=== PATIENT | female | born 1985 ===

== ENCOUNTER 2020-06-29 07:35 | Emergency (ER) | payer SELFPAY ==
[2020-06-29 08:10] VITALS: BP 182/120
--- NOTE | 2020-06-29 08:20 | Emergency Department Report ---
ED General Adult HPI - General Chief complaint: Dental/Oral Stated complaint: FACIAL SWELLING Time Seen by Provider: 06/29/20 08:14 Source: patient Mode of arrival: Ambulatory Limitations: No Limitations - History of Present Illness Initial comments: 34-year-old female patient presents to the emergency department with complaints of ongoing dental pain with lower lip swelling starting 2 days ago. No preceding fall, trauma, injury. Patient is not currently under the care of a dentist. Patient is not currently on antibiotics. Denies fever, chills, h oarseness, sore throat, dysphagia, shortness of breath, neck stiffness, cough, wheezing. Denies all other complaints at this time. - Related Data Previous Rx's Medication Instructions Recorded Last Taken Type Naproxen 500 mg PO BID #20 tablet 06/29/20 Unknown Rx Penicillin Vk [Veetids TAB] 500 mg PO QID 7 Days tablet 06/29/20 Unknown Rx Allergies Allergy/AdvReac Type Severity Reaction Status Date / Time No Known Allergies Allergy Unverified 06/29/20 08:08 ED Review of Systems ROS: Stated complaint: FACIAL SWELLING Other details as noted in HPI Other: GENERAL: Negative for fever. ENT: Positive for dental pain/lip swelling. CARDIOVASCULAR: Negative for chest pain. PULMONARY: Negative for shortness of breath. GASTROINTESTINAL: Negative for abdominal pain. MUSCULOSKELETAL: Negative for back pain. NEUROLOGICAL: Negative for headache. INTEGUMENTARY: Negative for rash. ED Past Medical Hx - Past Medical History Hx Asthma: Yes - Surgical History Additional Surgical History: - Medications Home Medications: Home Medications Medication Instructions Recorded Confirmed Last Taken Type Naproxen 500 mg PO BID #20 tablet 06/29/20 Unknown Rx Penicillin Vk [Veetids TAB] 500 mg PO QID 7 Days tablet 06/29/20 Unknown Rx ED Physical Exam - General Limitations: No Limitations - Other Other exam information: General: Awake, appropriately interactive, no acute distress. Dental: Oral mucosa is moist. Upper and lower gingiva appear inflamed. No fluctuance or evidence of periapical abscess. Sublingual, submental, and submandibular spaces all soft, without edema. No evidence for maxillary or buccal space abscess. No trismus. Patient is speaking in full sentences and handling secretions without difficulty. Neck: Supple. Full range of motion intact. Cardiovascular: Normal peripheral perfusion. Pulmonary: No respiratory distress. Patient is speaking normally without use of accessory muscles. Skin: No apparent rashes or lesions. Neurological: No facial asymmetry. Speech is clear. Follows commands. Patient is alert and oriented. Musculoskeletal: Moves all four extremities spontaneously with normal range of motion. Psych: Cooperative. Appropriate mood and affect. ED Course Vital Signs 06/29/20 08:08 Temperature 98.7 F Pulse Rate 86 Respiratory 18 Rate Blood Pressure 182/120 O2 Sat by Pulse 100 Oximetry ED Medical Decision Making - Medical Decision Making Differential diagnosis including but not limited to: dental caries, dental abscess, Az's angina, necrotizing gingivitis Patient presents emergency department with complaints of dental pain and lower lip swelling. She is afebrile. No tachycardia, no hypoxia, no respiratory distress. Speaking and handling her secretions without difficulty. History and exam findings suggestive of gingivitis with dental caries. No clinical indication for further diagnostic work-up on an emergent basis at this time. Patient will be discharged home with appropriate analgesics/antibiotics and referred to dentist for close outpatient follow-up. Patient expressed unders tanding and is agreeable to plan of care. Strict return precautions provided. Of note, patient's blood pressure was noted to be elevated in the emergency department, likely attributable to pain. Patient reports no prior history of hypertension. Specifically denies chest pain, shortness of breath, palpitations, syncope, headache, vision changes. Neurological exam is nonfocal and remainder of vital signs are stable. No clinical indication for further diagnostic work- up and/or initiation of antihypertensive therapy at this time per ACEP asymptomatic hypertension guidelines. Patient was encouraged to follow-up with primary care provider for blood pressure recheck. Lifestyle modifications recommended. Repeat exam is unremarkable and benign. History, exam, diagnostic testing, and current condition do not suggest worrisome pathology to warrant further testing, continued ED treatment, admission, or surgical evaluation at this point. Given the low probability of a significant medical illness, it would be more likely to result in harm than benefit to perform further testing at this stage. Discussed findings, presumptive diagnosis, need for follow-up and specific signs/symptoms that should prompt immediate return to the emergency department. Instructions were explained in detail to the patient in addition to giving written discharge information. Patient expressed understanding and was given the opportunity to ask questions, all of which were satisfactorily answered prior to discharge home. Critical care attestation.: If time is entered above; I have spent that time in minutes in the direct care of this critically ill patient, excluding procedure time. ED Disposition Clinical Impression: Dental caries, Elevated blood pressure reading Disposition: TO HOME OR SELFCARE Is pt being admited?: No Does the pt Need Aspirin: No Condition: Stable Instructions: DASH Eating Plan, Diet and Dental Disease Additional Instructions: Take Tylenol every 4 hours as needed for pain. Take Naprosyn twice daily with food as needed for pain. Do not take Ibuprofen while taking this medication. Take Penicillin with food as directed. Follow-up with your primary care provider next week for blood pressure recheck. Maintain a healthy diet. Exercise daily. You must follow-up with a dentist for definitive management. See referral information below. Call Wednesday to schedule an appointment. Return to the emergency department immediately for new or worsening symptoms. Specifically, return to the emergency department immediately for fever, increased swelling, difficulty swallowing, difficulty talking, difficulty breathing, or any other concerns. Prescriptions: Naproxen 500 mg PO BID #20 tablet Penicillin Vk [Veetids TAB] 500 mg PO QID 7 Days tablet Referrals: [facility] [Outside] - 3-5 Days [facility] [Outside] - 3-5 Days [facility] [Outside] - 3-5 Days [facility] [Outside] - 3-5 Days [facility] [Outside] - 3-5 Days Forms: Work/School Release Form(ED) Time of Disposition: 08:20
== END 2020-06-29 09:12 | disposition home or self-care (01) ==
LOC: ED 07:35
DX: K02.9 Dental caries, unspecified (principal); R03.0 Elevated blood-pressure reading, without diagnosis of hypertension; J45.909 Unspecified asthma, uncomplicated; Z79.899 Other long term (current) drug therapy; Z98.890 Other specified postprocedural states
CPT/HCPCS: 99281

== ENCOUNTER 2020-08-20 18:10 | Emergency (ER) | payer SELFPAY | END 2020-08-20 19:00 | disposition left against medical advice (07) | LOC: ED 18:10 | DX: R06.02 Shortness of breath (principal); R06.00 Dyspnea, unspecified; Z53.21 Procedure and treatment not carried out due to patient leaving prior to being seen by health care provider ==

== ENCOUNTER 2020-08-21 09:02 | Emergency (ER) | payer SELFPAY ==
[2020-08-21 10:44] LABS: Amorphous Crystals,Urine Few; Bacteria,Urine 1+ /HPF (Negative); Bilirubin,Urine NEG (Negative); Blood,Urine NEG (Negative); Color,Urine Yellow (Yellow); Mucus,Urine 1+ /HPF; Urobilinogen,Urine < 2.0 mg/dL (<2.0)
[2020-08-21 10:47] LABS: HCG Qualitative,Urine Negative (Negative)
--- NOTE | 2020-08-21 12:14 | Emergency Department Report ---
ED General Adult HPI - General Chief complaint: Abdominal Pain Stated complaint: SINUS/RESPIRATORY PROBLEM Time Seen by Provider: 08/21/20 11:25 Source: patient Mode of arrival: Ambulatory Limitations: No Limitations - History of Present Illness Initial comments: 34-year-old female patient with history of multiple C-sections presents to the emergency department with complaints of right lower quadrant abdominal pain with associated nausea and decreased appetite for 3 days. No known sick contacts. No current steroid or antibiotic use. No recent travel. Patient is concerned about possible STD exposure. Denies fever, chills, vomiting, diarrhea, vaginal discharge, vaginal bleeding. Denies all other complaints at this time. - Related Data Previous Rx's Medication Instructions Recorded Last Taken Type Naproxen 500 mg PO BID #20 tablet 06/29/20 Unknown Rx Penicillin Vk [Veetids TAB] 500 mg PO QID 7 Days tablet 06/29/20 Unknown Rx Doxycycline Monohydrate 100 mg PO BID 7 Days tablet 08/21/20 Unknown Rx cephALEXin [Keflex] 500 mg PO Q8HR 7 Days cap 08/21/20 Unknown Rx metroNIDAZOLE [Flagyl] 500 mg PO Q12HR 7 Days tab 08/21/20 Unknown Rx Allergies Allergy/AdvReac Type Severity Reaction Status Date / Time No Known Allergies Allergy Unverified 06/29/20 08:08 ED Review of Systems ROS: Stated complaint: SINUS/RESPIRATORY PROBLEM Other details as noted in HPI Other: GENERAL: Positive for decreased appetite. ENT: Positive for congestion. CARDIOVASCULAR: Negative for chest pain, palpitations, lower extremity swelling. PULMONARY: Negative for cough, dyspnea, wheezing, orthopnea, cyanosis. GASTROINTESTINAL: Positive for abdominal pain, nausea. MUSCULOSKELETAL: Negative for joint pain, joint swelling, myalgias, back pain, neck pain. NEUROLOGICAL: Negative for headache, seizure, syncope, paresthesias, weakness. INTEGUMENTARY: Negative for erythema, rash, diaphoresis, laceration, ecchymosis. HEMATOLOGICAL: Negative for hemoptysis, hematemesis, hematochezia, hematuria. PSYCHIATRIC: Negative for hallucinations, suicidal ideation, homicidal ideation, anxiety, depression. ED Past Medical Hx - Past Medical History Previous Medical History?: Yes Hx Asthma: Yes - Surgical History Additional Surgical History: - Medications Home Medications: Home Medications Medication Instructions Recorded Confirmed Last Taken Type Naproxen 500 mg PO BID #20 tablet 06/29/20 Unknown Rx Penicillin Vk [Veetids TAB] 500 mg PO QID 7 Days tablet 06/29/20 Unknown Rx Doxycycline Monohydrate 100 mg PO BID 7 Days tablet 08/21/20 Unknown Rx cephALEXin [Keflex] 500 mg PO Q8HR 7 Days cap 08/21/20 Unknown Rx metroNIDAZOLE [Flagyl] 500 mg PO Q12HR 7 Days tab 08/21/20 Unknown Rx ED Physical Exam - General Limitations: No Limitations - Other Other exam information: General: Awake and alert. No acute distress. BMI 31.6. Head: Atraumatic, normocephalic. Eyes: EOMI. Pupils are equal and round. Normal sclera and conjunctiva. ENT: Oral mucosa is moist. Normal pharyngeal exam. Neck: Supple. No lymphadenopathy. Pulmonary: No respiratory distress. Clear to auscultation bilaterally. Cardiac: Regular rate and rhythm. Pulses are palpable and equal bilaterally. No lower extremity cyanosis or edema. Skin: Warm and dry. No rashes. Abdomen: Soft, non-protuberant. Right lower quadrant tenderness without guarding, rigidity, or rebound. Bowel sounds are normal. No organomegaly or masses noted. Pelvic: Female acid blower (BRITTANIE Tucker) present. Normal external inspection. Cervical os is closed. There is no cervical motion tenderness. No blood in the vaginal vault. Trace amount of thin white vaginal discharge. No adnexal tenderness or masses. No uterine tenderness. Back: Normal alignment. No CVA tenderness. Extremities: Symmetrical. Full range of motion intact. Neurological: Alert and oriented, appropriately interactive, no focal deficits. Psych: Cooperative. Appropriate mood and affect. Speech is evenly metered. Thoughts are logically construed. ED Course Vital Signs 08/21/20 09:25 Temperature 98.3 F Pulse Rate 94 H Respiratory 20 Rate Blood Pressure 131/105 O2 Sat by Pulse 100 Oximetry ED Medical Decision Making - Lab Data Result diagrams: 08/21/20 12:38 08/21/20 12:38 - Radiology Data [facility] [address] [place] [address] Cat Scan Report Signed Patient: LEONELA HILL MR#: [id number] : 1985 Acct:[id number] Age/Sex: 34 / F ADM Date: 08/21/20 Loc: ED Attending Dr: Ordering Physician: TREVA ARMSTRONG Date of Service: 08/21/20 Procedure(s): CT abdomen pelvis w con Accession Number(s): [id number] cc: TREVA ARMSTRONG CT ABDOMEN AND PELVIS WITH CONTRAST INDICATION: RLQ tenderness/nausea/decreased appetite x2wks / WBC's CONTRAST: 100 cc Omnipaque 300 IV COMPARISON: None available. All CT scans at this location are performed using CT dose reduction for ALARA by means of automated exposure control. FINDINGS: Lung bases are clear. No pneumoperitoneum is seen. Slight fatty infiltration of the liver is noted without significant enlargement or obvious focal lesion. Gallbladder and bile ducts appear within normal limits. I see no abnormalities of the spleen, pancreas, adrenals, or left kidney. No lymphadenopathy is noted. No evidence of bowel obstruction is seen. No significant bowel wall thickening is noted. Appendix appears within normal limits. No urinary obstructive changes are seen. Kidneys are viewed in an early phase of contrast. Small hypodensities are seen in the upper and lower poles of the right kidney which are possibly cysts though indeterminate. Larger is in the upper pole measuring 12 mm in diameter with internal density well above the water range at 78 Hounsfield units. Borders are somewhat ill- defined. The smaller is seen laterally in the lower pole measuring 8 mm with internal density indeterminate at 88 Hounsfield units and borders are fairly well-defined. No definite renal edema is seen. Only minimal nonspecific pelvic free fluid is seen. A small partly collapsed left ovarian cyst is seen which is likely physiologic and only measures 11 mm. IMPRESSION: 1. No definite acute abnormalities are seen. No obvious source of right lower quadrant pain is identified. 2. Small indeterminate lesions of the right kidney. Follow-up is suggested. Signer Name: Jordy Rome MD Signed: 08/21/2020 2:29 PM Workstation Name: [id number] Transcribed By: GJ Dictated By: Jordy Rome MD Electronically Authenticated By: Jordy Rome MD Signed Date/Time: 08/21/201428 DD/ 19 TD/TT: - Medical Decision Making Differential diagnosis including but not limited to: appendicitis, pelvic inflammatory disease, pyelonephritis, nephrolithiasis, urinary tract infection, ovarian cyst/torsion, ectopic On reevaluation, patient is stable. Tolerating oral intake without difficulty. Repeat abdominal exam is benign. Labs show leukocytosis in the setting of urinary tract infection. Urine culture sent. No fever, vomiting, CVA tenderness, or radiographic findings to suggest pyelonephritis. Wet prep shows trichomonas, yeast, and bacterial vaginosis. STD cultures are pending. Patient treated empirically with Rocephin and Doxycycline per current CDC guidelines as well as a one-time dose of Diflucan and first dose of Flagyl in the emergency department. CT of the abdomen/pelvis obtained due to right lower quadrant tenderness/nausea/anorexia; appendix appears normal. No clinical indication for further diagnostic work-up on an emergent basis at this time. Patient will be discharged home with appropriate antibiotics and referred to both primary care provider and interventional radiology rn for close outpatient follow-up. Patient expressed understanding and is agreeable to plan of care. Disease transmission prec autions discussed. Strict return precautions provided. Repeat exam is unremarkable and benign. History, exam, diagnostic testing, and current condition do not suggest worrisome pathology to warrant further testing, continued ED treatment, admission, or surgical evaluation at this point. Given the low probability of a significant medical illness, it would be more likely to result in harm than benefit to perform further testing at this stage. Discussed findings, presumptive diagnosis, need for follow-up and specific signs/symptoms that should prompt immediate return to the emergency department. Instructions were explained in detail to the patient in addition to giving written discharge information. Patient expressed understanding and was given the opportunity to ask questions, all of which were satisfactorily answered prior to discharge home. Critical care attestation.: If time is entered above; I have spent that time in minutes in the direct care of this critically ill patient, excluding procedure time. ED Disposition Clinical Impression: Trichomonas infection, Bacterial vaginosis, Vaginal candidiasis, STD exposure Urinary tract infection Qualifiers: Urinary tract infection type: acute cystitis Hematuria presence: without hematuria Qualified Code(s): N30.00 - Acute cystitis without hematuria Disposition: TO HOME OR SELFCARE Is pt being admited?: No Does the pt Need Aspirin: No Condition: Stable Instructions: Bacterial Vaginosis, Urinary Tract Infection, Adult, Safe Sex, Bacterial Vaginosis (ED), Abdominal Pain (ED) Additional Instructions: Take Tylenol every 4 hours and Motrin every 8 hours as needed for pain. Take Doxycycline with food as directed. Avoid prolonged sun exposure while taking this medication. Take Keflex with food as directed. Increase your dietary intake of probiotic rich foods while taking these medications. Take Flagyl as directed. Do not consume any alcohol while taking this medication. Rest. Drink plenty of fluids. Follow-up with primary care provider and interventional radiology rn this week. Call tomorrow to schedule an appointment. See referral information below. Return to the emergency department immediately for new or worsening symptoms. Prescriptions: Doxycycline Monohydrate 100 mg PO BID 7 Days tablet metroNIDAZOLE [Flagyl] 500 mg PO Q12HR 7 Days tab cephALEXin [Keflex] 500 mg PO Q8HR 7 Days cap Referrals: AMANDA QUESADA MD [Staff Physician] - 3-5 Days JOSE A KIM MD [Staff Physician] - 3-5 Days [facility] [Outside] - 3-5 Days [facility] [Outside] - 3-[address] [facility] [Outside] - 3-5 Days [facility] [Provider Group] - 3-5 Days Forms: STI Treatment and Prevention, Work/School Release Form(ED) Time of Disposition: 14:52
[2020-08-21] MEDS ORDERED: ACETAMINOPHEN 500 MG TAB PO ONE (12:38)
[2020-08-21 13:04] LABS: Hematocrit 37.4 % (30.3-42.9); Hemoglobin 12.3 gm/dl (10.1-14.3); Mean Corpuscular HGB Conc 33 % (30-34); Mean Corpuscular Volume 84 fl (79-97); Platelet Count 372 K/mm3 (140-440); Red Blood Count 4.44 M/mm3 (3.65-5.03); Red Cell Distribution Width 14.7 % (13.2-15.2)
[2020-08-21 13:32] LABS: Alanine Aminotransferase 23 units/L (7-56); Albumin 3.8 g/dL (3.9-5); Blood Urea Nitrogen 5 mg/dL (7-17); Calcium 9.1 mg/dL (8.4-10.2); Hemolysis Index 1
[2020-08-21 13:33] LABS: BUN/Creatinine Ratio 7
[2020-08-21 13:42] LABS: Total Cells Counted 100
[2020-08-21 13:43] LABS: Platelet Estimate Consistent w Auto; RBC Morphology Normal
[2020-08-21] MEDS ORDERED: DOXYCYCLINE 100 MG CAP PO ONE (14:03)
[2020-08-21] MEDS ORDERED: LIDOCAINE-MPF (1%) 10 MG/1 ML VIAL 5 ML INFILTRATI ONE (14:03)
[2020-08-21] MEDS ORDERED: metroNIDAZOLE 500 MG TAB PO ONE (14:03)
[2020-08-21] MEDS ORDERED: METOCLOPRAMIDE 10 MG/2 ML INJ IV ONE (14:05)
--- NOTE | 2020-08-21 14:34 | Cat Scan Report ---
CT ABDOMEN AND PELVIS WITH CONTRAST INDICATION: RLQ tenderness/nausea/decreased appetite x2wks / WBC's CONTRAST: 100 cc Omnipaque 300 IV COMPARISON: None available. All CT scans at this location are performed using CT dose reduction for ALARA by means of automated e xposure control. FINDINGS: Lung bases are clear. No pneumoperitoneum is seen. Slight fatty infiltration of the liver i s noted without significant enlargement or obvious focal lesion. Gallbladder and bile ducts appear wi thin normal limits. I see no abnormalities of the spleen, pancreas, adrenals, or left kidney. No lymp hadenopathy is noted. No evidence of bowel obstruction is seen. No significant bowel wall thickening is noted. Appendix blair ears within normal limits. No urinary obstructive changes are seen. Kidneys are viewed in an early phase of contrast. Small hypo densities are seen in the upper and lower poles of the right kidney which are possibly cysts though i ndeterminate. Larger is in the upper pole measuring 12 mm in diameter with internal density well abov e the water range at 78 Hounsfield units. Borders are somewhat ill-defined. The smaller is seen later ally in the lower pole measuring 8 mm with internal density indeterminate at 88 Hounsfield units and borders are fairly well-defined. No definite renal edema is seen. Only minimal nonspecific pelvic free fluid is seen. A small partly collapsed left ovarian cyst is see n which is likely physiologic and only measures 11 mm. IMPRESSION: 1. No definite acute abnormalities are seen. No obvious source of right lower quadrant pain is identi fied. 2. Small indeterminate lesions of the right kidney. Follow-up is suggested. Signer Name: Jordy Rome MD Signed: 08/21/2020 2:29 PM Workstation Name: [id number]
[2020-08-21] MEDS ORDERED: FLUCONAZOLE 100 MG TAB PO ONE (15:00)
[2020-08-21 15:44] VITALS: BP 132/78
== END 2020-08-21 15:44 | disposition home or self-care (01) ==
LOC: ED 09:02
DX: A59.9 Trichomoniasis, unspecified (principal); N39.0 Urinary tract infection, site not specified; N76.0 Acute vaginitis; B96.89 Other specified bacterial agents as the cause of diseases classified elsewhere; B37.3 Candidiasis of vulva and vagina; Z20.2 Contact with and (suspected) exposure to infections with a predominantly sexual mode of transmission; J45.909 Unspecified asthma, uncomplicated; Z98.890 Other specified postprocedural states; Z79.899 Other long term (current) drug therapy
CPT/HCPCS: 36415; 74177; 80053; 81001; 81025; 83690; 83735; 85007; 85025; 87086; 87210; 96365; 96375; 99284; J0696; J2765; Q9967; 87076; 87186